=== PATIENT | female | born 1965 | race Caucasian/White ===

== ENCOUNTER 2020-05-20 11:09 | Emergency (ER) | payer OTHER, SELFPAY ==
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
[2020-05-20 11:23] VITALS: BP 153/73; PULSE 76; RESP 20; TEMP 36.9; O2SAT 100
[2020-05-20 12:17] VITALS: BP 119/63
== END 2020-05-20 12:17 | disposition home or self-care (01) ==
PROVIDERS: Emergency Provider Emergency Medicine; PCP Internal Medicine
DX: T14.8XXA Other injury of unspecified body region, initial encounter (principal); S63.92XA Sprain of unspecified part of left wrist and hand, initial encounter; V89.2XXA Person injured in unspecified motor-vehicle accident, traffic, initial encounter
CPT/HCPCS: 73000; 73130; 99282; 99284

== ENCOUNTER 2022-10-11 07:28 | Outpatient (CLI) | payer OTHER, SELFPAY ==
[2022-10-11 07:40] LABS: Appearance Urine Clear (Clear); Bilirubin Urine Negative (Negative); Glucose Urine UA Negative (Negative); Hematocrit 39.7 % (35.0-49.0); Hemoglobin 12.9 g/dL (12.0-15.0); Ketones Urine Negative (Negative); Leukocyte Esterase Ur Negative LEU/UL (Negative); Mean Corpuscular HGB Conc 32.5 g/dL (32.0-36.0); Mean Corpuscular Hemoglobin 30.5 pg (27.0-31.0); Mean Corpuscular Volume 93.9 fL (78.0-102.0); Mean Platelet Volume 10.6 fl (9.2-11.8); Nitrate Urine Negative (Negative); Platelet Count Result 201 K/mm3 (150-420); Protein Urine Negative (Negative); Red Blood Count 4.23 M/mm3 (4.20-5.40); Red Cell Distribution Width 13.3 % (11.6-14.4); Urobilinogen Urine 0.2 mg/dL (0.2-1.0); White Blood Count 3.8 K/mm3 (4.8-10.8)
[2022-10-11 07:55] LABS: Add Urine Microscopic? YES; Bacteria Urine None seen /hpf; Blood Urine Trace-Intact (Negative); Color Urine Light Yellow (Yellow); RBC Urine None seen /hpf (0-2); Squamous Epithelial Cell Urine Occasional /hpf (Few); WBC Urine None seen /hpf (0-3)
[2022-10-11 08:18] LABS: Band Neutrophils Percent 2 % (0-6); Lymphocytes Absolute Manual 1.21 K/mm3 (1.1-4.5); Lymphocytes Percent Manual 32 % (18-44); Monocytes Absolute Manual 0.19 K/mm3 (0.1-0.90); Monocytes Percent Manual 5 % (3-9); Neutrophils Absolute Manual 2.39 K/mm3 (1.7-7.2); Neutrophils Percent Manual 61 % (46-73); Total Cells Counted 100
[2022-10-11 08:19] LABS: Platelet Estimate Adequate (Adequate)
[2022-10-11 09:10] LABS: Alanine Aminotransferase 18 U/L (14-59); Albumin Level 3.6 g/dL (3.4-5.0); Alkaline Phosphatase 54 U/L (46-116); Anion Gap 9 mmol/L (8-16); Aspartate Amino Transferase 18 U/L (15-37); Bilirubin,Total 0.4 mg/dL (0.00-1.00); Blood Urea Nitrogen 8 mg/dL (7-18); Calcium 8.8 mg/dL (8.5-10.1); Carbon Dioxide 30 mmol/L (21-32); Chloride 106 mmol/L (98-108); Cholesterol 251 mg/dL (0-200); Estimated Glomerular Filt Rate > 60; Free T4 Free Thyroxine 0.93 ng/dL (0.76-1.46); Glucose 84 mg/dL (70-99); HDL Direct 79 mg/dL (40-60); LDL Cholesterol Calculated 153 mg/dL (<130); Osmolality Calculated 297 mOsm/kg (285-295); Potassium 4.2 mmol/L (3.5-5.1); Sodium 145 mmol/L (136-145); Thyroid Stimulating Hormone 0.81 uIU/mL (0.36-3.74); Triglycerides 95 mg/dL (0-150)
[2022-10-14 21:35] LABS: Vitamin D 25 Hydroxy 42 ng/mL (30-100)
== END 2022-10-11 07:29 | disposition home or self-care (01) ==
LOC: CHSLAB 07:29
PROVIDERS: PCP Internal Medicine; Visit Provider Nurse Practitioner Family
DX: Z00.00 Encounter for general adult medical examination without abnormal findings (principal); N95.0 Postmenopausal bleeding; E78.5 Hyperlipidemia, unspecified; R53.83 Other fatigue; E55.9 Vitamin D deficiency, unspecified
CPT/HCPCS: 36415; 80053; 80061; 81001; 82306; 84439; 84443; 85025

== ENCOUNTER 2023-02-14 15:34 | Outpatient (CLI) | payer OTHER, SELFPAY ==
--- NOTE | ~2023-02-14 | XR_ITS ---
XR elbow LT min 3V DATE: 02/14/2023 15:51 INDICATION: Medial left elbow pain. No known injury. TECHNIQUE: 4 views COMPARISON: None FINDINGS: No fracture or dislocation or joint effusion. No periosteal reaction or bone destruction. IMPRESSION: Negative Reviewed, dictated and finalized at location B. IMPRESSION: Negative
== END 2023-02-14 15:35 | disposition home or self-care (01) ==
LOC: CHSIMG 15:36
PROVIDERS: PCP Internal Medicine; Visit Provider Nurse Practitioner Family
DX: M25.552 Pain in left hip (principal)
CPT/HCPCS: 73080

== ENCOUNTER 2024-08-19 02:17 | Day surgery (SDC) | payer OTHER, SELFPAY ==
[2024-08-08 12:10] VITALS: BMI 25.0
--- NOTE | 2024-08-08 12:19 | PC.NURSE ---
Report to the Outpatient Waiting Room, entrance under the green pavilion located off [facility], at time _1130_ on date _[id number]_. Planned Procedure Time: _130pm_.? Time changes happen often and if your time is changed the preop area will call you the afternoon before. - You and your visitor will be asked to self-screen and do not enter if you have any COVID symptoms. Please call surgeon if you need to reschedule. - A mask is optional within the hospital at this time. Patients may have clear liquids (water, carbonated beverages, clear teas, apple juice) until 3 hours prior to surgery with a maximum of 20 ounces. - No food from midnight until time of surgery and no smoking Take only the following medications with a SIP of water on the morning of surgery: ____None DO NOT STOP ANY OF YOUR OTHER PRESCRIPTION MEDICATIONS PRIOR TO SURGERY EXCEPT THE FOLLOWING Medications to discontinue per physician Stop Meloxicam 08-12-2024 and stop vitamin and Turmeric [phone] Please no make-up, nail israeli, hairspray, perfume, deodorant, or body powder the day of surgery.? No jewelry (including any body piercings) or valuables the day of surgery, leave them at home.? Please take a shower or bath the night before, or the morning of, surgery with an antibacterial soap.? Wear comfortable, loose fitting clothing.? - Jewelry must be removed prior to entering the operating room.? Rings and piercings that are not removed may be cut off. - The hospital will not accept responsibility for valuables.? - Please leave all valuables, including medications, at home the day of surgery. If you are going home after surgery, a licensed new car driver must drive you home.? - NO public transportation without another adult if you receive anesthesia. - We recommend that an adult stay with you for 24 hours following discharge. - We also recommend that you do not drive, make important decision, drink alcoholic beverages, or take any drugs that were not prescribed by your health care provider for at least 24 hours after your discharge time. Follow any additional instructions given to you from your surgeon. Telephone instructions given to __Dennise__and asked if any additional questions and then verbalized understanding. Patient advised to call surgeon office or pre surgery nurse liaison [phone] if any additional questions.
--- NOTE | 2024-08-18 13:18 | WPDANESEPPF ---
Anes - Initial Pre Proc Eval Procedure: Operation Date: 08/19/24 13:30 Proposed Procedures p Left Elbow Lateral Epicondyle Debridement - iDnh Ying MD Date/Time: 08/18/24 13:18 Surgeon: Dinh Ying MD Pre Op Diagnosis: left elbow epicondylitis Patient Data Age: 59 Gender: F Height: 1.65 m Weight: 68.2 kg Allergies Allergy/AdvReac Type Severity Reaction Status Date / Time amoxicillin Allergy Hives Verified 08/19/24 12:08 adhesive tape AdvReac Rash & Verified 08/08/24 12:09 itching Home Medications Medication Instructions Recorded Confirmed Type multivit,mineral-folic acid 800 1 tablet PO DAILY 01/19/21 08/19/24 History mcg-vit K 100 mcg-herbal no.289 tablet (Alive Once Daily Women 50 Plus) meloxicam 15 mg tablet 15 mg PO DAILY #60 tabs 06/04/24 08/19/24 Rx turmeric 400 mg capsule 400 mg PO DAILY 07/30/24 08/19/24 History Patient hx anesthesia problems: none Family hx anesthesia problems: none Results Review: All pre-operative results and documents have been reviewed as part of the pre-operative evaluation. [facility] Past Medical History Medical History Acute pharyngitis Cellulitis of face Dextroscoliosis of lumbar spine Lipoma of arm left Migraine headache Multiple symmetrical lipomatosis Otalgia, right ear Surgical History Surgical History (Updated 08/18/24 @ 13:19 by Peter Lobo DO) Bone tumor Excision History of neck surgery History of tonsillectomy Hx of fusion of cervical spine Neuroma excision on left foot x3 2017, 2018, & 2019 S/P excision of lipoma x2 S/P hemorrhoidectomy s/p I&D thrombosed internal hemorrhoids on Family History Family History Grandparent Parkinson disease Father Lung cancer Social History Social History Smoking status: Never smoker Alcohol intake: current Drinks per week: 2 Alcohol use details: Socially Substance use: never Do You Feel Safe in your Home?: Yes Lack of Transportation: No Lack of Food: Never True Current Housing: I Have Housing Concerned About Future Housing: No Difficulty Paying Gas/Electric Bills: No Difficulty Paying for Meds: No Currently Unemployed: No Education: High School Diploma/GED Difficulty w/ Childcare or Family Care: No Living arrangements: with family Occupation/Education: occupation 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 Informed Consent: The patient's anesthetic plan and its attendant risks and benefits were discussed with the patient/family/POA. Questions were solicited and answers provided to the satisfaction of the patient/family/POA.
[2024-08-19] VITALS (7 sets, daily range): BP systolic 116–151; BP diastolic 62–72; PULSE 62–98; RESP 12–17; TEMP 36.5–36.8; O2SAT 99–100
--- NOTE | 2024-08-19 07:13 | WPDHPUPDATE1 ---
History and Physical Update Update Date/Time: 08/19/24 07:13 History and Physical has been reviewed, including an updated exam of the patient. There are NO changes in the patient's condition. Risks, benefits, and alternatives have been discussed and questions answered. Patient agrees to proceed with procedure.
[2024-08-19] MEDS: LACTATED RINGERS 1,000 ML 30 ML IV CONT ×2 (12:00→14:00)
[2024-08-19] MEDS: ACETAMINOPHEN 500 MG TABLET 1000 MG PO (12:07)
[2024-08-19] MEDS: KETOROLAC 15 MG/ML VIAL (*BKC) IV PUSH (12:07)
--- NOTE | 2024-08-19 14:16 | W.PM.PROC2 ---
Procedure Note - Detailed Date of Procedure 08/19/24 Pre-op Diagnosis Left elbow lateral epicondylitis. Post-op Diagnosis Same Procedure Performed Left elbow common extensor tendon debridement. Surgeon Dinh Ying MD Specialty Molder Jayda Wilkes PA-C Anesthesia General Indications Severe recalcitrant lateral elbow pain despite conservative treatment. Description of Procedure The patient was brought to the operating room. Preoperative antibiotics were given. A general anesthetic was administered. The arm was prepped and draped in the usual sterile fashion with a well-padded tourniquet on the arm. The limb was exsanguinated and the tourniquet inflated to 250 mililiters of mercury. A longitudinal incision was created over the pathological site at the lateral epicondyle. Dissection was brought down to the interval between the common extensor tendons and the extensor carpi radialis longus. The muscle was elevated, exposing the extensor carpi radialis brevis. Degenerative pathologic tendon was identified and excised sharply. The lateral epicondyle was abraded with a rongeur. The scratch test was to confirm complete excision of pathologic tissue. The wound was carefully irrigated. The tourniquet was released. The extensor tendon origin was repaired with [id number] sutures #1 Vicryl . The skin was closed with interrupted 3-0 Monocryl suture followed by running 4-0 Monocryl suture and Steri-Strips. Sterile dressing was applied with the wrist splint. The patient was extubated and brought to the recovery room in stable condition. Estimated Blood Loss 1 Drains No Packing No Pathology None sent Complications No immediate complications Condition Stable Disposition PACU [facility] Billing Surgery - Charge Forward: Surgery Billing
[2024-08-19] MEDS: ceFAZolin 2 GM/D5W 50 ML 2 GM/50 ML BAG IVPB (14:29)
[2024-08-19] MEDS: BUPIVACAINE/EPINEPHRINE 0.5% 50 ML VIAL 15 ML INFILTRATE (15:00)
--- NOTE | 2024-08-19 15:35 | SUR.PHASEI ---
Simple mask removed [id number]
== END 2024-08-19 16:52 | disposition home or self-care (01) ==
PROVIDERS: PCP Internal Medicine; Visit Provider Orthopaedic Surgery
PROC: (CPT 24110; principal; 2024-08-19 13:30)
DX: M77.12 Lateral epicondylitis, left elbow (principal); M41.86 Other forms of scoliosis, lumbar region; Z98.890 Other specified postprocedural states; Z98.1 Arthrodesis status; Z86.018 Personal history of other benign neoplasm; Z80.1 Family history of malignant neoplasm of trachea, bronchus and lung
CPT/HCPCS: 24358; A4565; A9270; J0690; J1100; J1596; J1885; J2003; J2250; J2405; J2704; J3010; J7120

== ENCOUNTER 2025-05-19 07:07 | Outpatient (CLI) | payer OTHER, SELFPAY ==
--- OUTSIDE RECORDS SUMMARY | 2025-05-19 07:11 | XMS_ITS | Data Portability ---
Author Organization [facility] AYANTera Maradiaga Address [address] [place] [address] Care Team Providers Care Customer Service Technician Name Role Phone VY OLMEDO Motor Vehicle Representative Assessment Encounter Date Assessment Date Assessment LastModified by Organization Details LastModified Time 03/09/2015 03/09/2015 Some dryness/dyspa reunia. Discussed lubrication, foreplay, and hormones... 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 good spirits - had to have a nuroma on foot removed recent mammograms discussed - has f/u in 6 mos Not available 11/18/2018 16:36:47 Plan of Treatment Reminders Order Date Submit Date Provider Last Modified By Organization Details Last Modified Time Details Appointments None recorded. Lab unlisted lab - igp, rfx aptima HPV ascu 2017 018 ELIDA [facility], [address], [address], [place], [address], 9 16:13:27 fecal occult blood, stool 2017 018 ELIDA In-Office Order, Internal Use Only DO Not Attach Compendium DO Not Attach Compendium, Do Not Delete/merge, [id number] 8 16:35:15 fecal occult blood, stool 2016 017 ELIDA In-Office Order, Internal Use Only DO Not Attach Compendium DO Not Attach Compendium, Do Not Delete/merge, [id number] 7 14:40:30 pap, LB + reflex to HR HPV if ASC-U 2014 015 ELIDA [facility], [address], [address], [place], [address], 5 15:17:52 Referral None recorded. Procedures None recorded. Surgeries None recorded. Imaging MAMMO, screening, digital, bilateral 2016 017 [email or web address] Not available 7 15:00:11 MAMMO, screening, digital, bilateral - May do additional views and/or ultrasound if indicated 2014 015 [email or web address] Not available 5 10:02:10 Medication Orders None recorded. Patient TargetsNo targets recorded. Patient Instructions Encounter Date Encounter Id Patient Instructions Last Modified By Organization Details Last Modified Time 03/09/2015 [id number] learning about breast cancer screening Not available 03/09/2015 12:21:32 08/07/2017 [id number] learning about breast cancer screening [email or web address] Not available 08/07/2017 14:40:13 Reason for Referral None Reported. Results Created Date Observation Date Name Description Value Unit Range Abnormal Flag Note LastModifiedBy Organization Detail LastModifiedTime 08/07/20 17 08/07/2017 fecal occul t blood , stool Occult Blood negati ve Not Available In-Office Order Internal Use Only DO Not Attach Compendium DO Not Attach Compendium, Do Not Delete/merge, [id number] 08/07/2017 14:04:54 03/09/20 15 03/15/2015 pap, LB + refle x to HR HPV if ASC-U diagnosis: COMMEN T NEGAT EDELMIRA FOR INTRA EPITH ELIAL DELLA N AND REX FRASER . CELLU LAR TURNER ES ASSOC IATED WITH ATROP HY ARE PRESE NT. THIS SPECI MEN WAS RESCR EENED PART OF OUR QUALI TY CONTR OL PROGR AM. Not Available [facility] ([facility]) [address], [place], [address], 03/15/2015 15:17:52 03/09/20 15 03/15/2015 pap, LB + refle x to HR HPV if ASC-U specimen adequacy: GAYE Sy SATIS FACTO RY FOR EVALU ATION . ENDOC ERVIC AL COMPO NENT MAY NOT BE DISTI NGUIS HED IN CASES OF ATROP HY. Not Available [facility] ([facility]) [address] [place], [address], 03/15/2015 15:17:52 03/09/20 15 03/15/2015 pap, LB + refle x to HR HPV if ASC-U clinician provided ICD9: GAYE Sy V72.3 1 ; CAIT CANELA GYNEC OLOGI RADHA EXAMI NATIO N Not Available [facility] ([facility]) [address] [place], [address], 03/15/2015 15:17:52 03/09/20 15 03/15/2015 pap, LB + refle x to HR HPV if ASC-U performed by: GAYE DESAI, CYTOT ECHNO LOGIS T (ASCP ) Not Available [facility] ([facility]) [address] [place], [address], 03/15/2015 15:17:52 03/09/20 15 03/15/2015 pap, LB + refle x to HR HPV if ASC-U QC reviewed by: GAYE ALBARRAN R, SUPER VISOR Y CYTOT ECHNO LOGIS T (ASCP ) Not Available [facility] ([facility]) [address] [place], [address], 03/15/2015 15:17:52 03/09/20 15 03/15/2015 pap, LB + refle x to HR HPV if ASC-U . . Not Available [facility] ([facility]) [address] [place], [address], 03/15/2015 15:17:52 03/09/20 15 03/15/2015 pap, LB + refle x to HR HPV if ASC-U note: COMMEN T THE PAP SMEAR IS A SCREE VANE TEST DESIG PABLO TO AID IN THE DETEC TION OF LALO LIGNA NT AND MALIG NANT CONDI TIONS OF THE UTERI NE CERVI X. IT IS NOT A DIAGN OSTIC PROCE DURE AND SHOUL D NOT BE USED THE SOLE MEANS OF DETEC TING CERVI RADHA CANCE R. BOTH FALSE -POSI TIVE AND FALSE -NEGA TIVE REPOR TS DO OCCUR . . Not Available [facility] ([facility]) [address] [place], [address], 03/15/2015 15:17:52 03/09/20 15 03/15/2015 pap, LB + refle x to HR HPV if ASC-U test methodology: COMMEN T THIS LIQUI D BASED THINP REP(R ) PAP TEST WAS SCREE PABLO WITH THE USE OF AN IMAGE GUIDE D SYSTE M. Not Available [facility] ([facility]) [address] [place], [address], 03/15/2015 15:17:52 03/09/20 15 03/15/2015 pap, LB + refle x to HR HPV if ASC-U . COMMEN T THE HPV DNA REFLE X CRITE JERONIMO WERE NOT MET WITH THIS SPECI MEN RESUL T THERE FORE, NO HPV TESTI NG WAS PERFO RMED. . Not Available [facility] ([facility]) [address] [place], [address], 03/15/2015 15:17:52 11/18/20 18 11/20/2018 pap, IG + refle x HR HPV diagnosis: Commen t NEGAT EDELMIRA FOR INTRA EPITH ELIAL LESIO N AND REX FRASER . Not Available [facility] ([facility]) [address] [place], [address], 11/20/2018 16:13:27 11/18/20 18 11/20/2018 pap, IG + refle x HR HPV specimen adequacy: Commen t Satis facto ry for evalu ation . Endoc ervic al and/o r squam ous metap lasti c cells (endo cervi radha compo nent) are prese nt. Not Available [facility] ([facility]) [address] [place], [address], 11/20/2018 16:13:27 11/18/20 18 11/20/2018 pap, IG + refle x HR HPV clinician provided ICD10: Gaye sy Z01.4 19 Not Available [facility] ([facility]) [address] [place], [address], 11/20/2018 16:13:27 11/18/20 18 11/20/2018 pap, IG + refle x HR HPV performed by: Rebecca Wiley (ASCP ) Not Available [facility] ([facility]) [address] [place], [address], 11/20/2018 16:13:27 11/18/20 18 11/20/2018 pap, IG + refle x HR HPV . . Not Available [facility] ([facility]) [address] [place], [address], 11/20/2018 16:13:27 11/18/20 18 11/20/2018 pap, IG + refle x HR HPV note: Gaye sy The Pap smear is a scree vane test descher pablo to aid in the detec tion of lalo ligna nt and malig nant condi tions of the uteri ne cervi x. It is not a diagn ostic proce dure and shoul d not be used as the sole means of detec ting cervi radha cance r. Both false -posi tive and false -nega tive repor ts do occur . Not Available [facility] ([facility]) [address] [place], [address], 11/20/2018 16:13:27 11/18/20 18 11/20/2018 pap, IG + refle x HR HPV test methodology: Commen t This liqui d based ThinP rep(R ) pap test was winston shah with the use of an image guide michelle campo. Not Available [facility] ([facility]) [address] [facility] [address], [place], [address], 11/20/2018 16:13:27 11/18/20 18 11/20/2018 pap, IG + refle x HR HPV . Commen t The HPV DNA refle x crite jeronimo were not met with this speci men resul t there fore, no HPV testi ng was perfo rmed. Not Available [facility] ([facility]) [address] [facility] [address], [place], [address], 11/20/2018 16:13:27 11/18/20 18 11/18/2018 fecal occul t blood , stool Occult Blood negati ve Not Available In-Office Order Internal Use Only DO Not Attach Compendium DO Not Attach Compendium, Do Not Delete/merge, [id number] 11/18/2018 16:06:55 09/09/20 15 09/08/2015 imagi ng/di agnos tic resul t No observ ation record ed. [email or web address] [facility] ([facility]) Scheduling [address] [place], [address], 09/09/2015 11:33:56 10/21/20 18 10/19/2018 MAMMO , scree vane, digit al, bilat eral No observ ation record ed. [email or web address] Not Available 2017 14:31:21 10/29/20 18 10/29/2018 MAMMO , diagn ostic , unila teral No observ ation record ed. [email or web address] [facility] [address] [place], [address], 10/29/2018 17:21:26 05/23/20 19 05/23/2019 MAMMO , diagn ostic , unila teral No observ ation record ed. [email or web address] [facility] [address] [place], [address], 05/23/2019 16:41:35 12/05/1905/23/2019 MAMMO , diagn ostic , unila teral No observ [facility]ion [facility] [address] [place], [address], 12/09/2019 11:27:26 12/25/19 20 12/25/2019 MAMMO , diagn ostic , digit al, bilat eral No observ ation record ed. [email or web address] [facility] [address] [facility] [place], [address], 12/26/2019 11:58:05 12/28/19 21 12/28/2020 US, breas t, bilat eral No observ ation record ed. [facility] [address] [facility] [place], [address], 12/28/2020 13:15:48 Result Notes None recorded. Problems Name Problem SNOMED Code Status Onset Date Resolution Date Notes Provider Name and Address Organization Details Recorded Time Menopause present 387607659 Active Vy Olmedo MD Attn: True mims,[address] [facility], [place], [address], [facility] 5 12:21:31 Problem Notes None recorded. Procedures Surgical History Date Name Laterality Status Provider Name and Address Organization Details Recorded Time 1 Most Recent Mammogram completed Lacey Santos RN [facility] 12/28/2020 12:34:48 8 Date of Last Pap Smear completed Paige Valdez MA [facility] 11/21/2018 08:01:24 9 Colposcopy completed Paige Valdez MA [facility] 03/09/2015 11:59:25 Imaging Results None recorded. Procedure Notes None recorded. Medical Equipment None Reported. Allergies No known drug allergies Medications Name Sig Start Date Stop Date Status Note LastModified by Organization Details LastModified Time amoxicillin 500 mg capsule active Not Available Not Availab le Not Available azithromycin 250 mg tablet active Not Available Not Availabl e Not Available hydrocodone 5 mg-acetaminoph en 325 mg tablet active Not Available Not Available Not Available cephalexin 500 mg capsule active Not Available Not Available N ot Available oseltamivir 75 mg capsule active Not Available Not Available N ot Available amoxicillin 875 mg-potassium clavulanate 125 mg tablet active Not Available Not Availabl e Not Available Vitals Date Recorded Body weight Body height Body mass index (BMI) Systolic blood pressure Diastolic blood pressure Provider Name and Address Organization Details Last Updated DateTime 03/09/2015 64766.19 284 g 160.02 cm 23.4 kg/m2 112 mm[Hg] 74 mm[Hg] Paige herrera MA [facility] 5 12:04:33 Date Recorded Body height Body mass index (BMI) Body weight Systolic blood pressure Diastolic blood pressure Provider Name and Address Organization Details Last Updated DateTime 08/07/2017 160.02 cm 24.5 kg/m2 19881.82 g 124 mm[Hg] 76 mm[Hg] Paige herrera MA [facility] 7 14:09:55 Date Recorded Body height Body mass index (BMI) Body weight Systolic blood pressure Diastolic blood pressure Provider Name and Address Organization Details Last Updated DateTime 11/18/2018 160.02 cm 25.6 kg/m2 00497.18 g 112 mm[Hg] 82 mm[Hg] Paige herrera MA [facility] 8 16:14:59 Social History Question Answer Notes LastModified by Organizat ion Details LastModified Time Tobacco Smoking Status Never Smoker Piage Valdez MA null, [facility] 03/09/2015 11:59:25 How Many Children Do You Have? 1 Information not available 03/09/2015 What Is Your Relationship Status? Information not available 03/09/2015 Sex: Unknown Functional Status None recorded. Mental Status None recorded. Family History Nothing Reported. Medical History Condition Response Heart Problems/Murmur Y Gynecological History Statement/Question Response Menses Monthly N Abnormal Pap Yes Date of Last Pap Smear 11/18/2018 Current Control Method Menopause Most Recent Mammogram 12/28/2020 LMP Definite Obstetrics History GPAL:G 1 P 1 0 0 1 Type Value Full Term 1 Living 1 Total 1 Past Encounters Encounter ID Performer Location Encounter Start Date Encounter Closed Date Diagnosis/Indication Diagnosis SNOMED-CT Code Diagnosis ICD10 Code Diagnosis Note [id number] MD Shelly Finney ([facility] 205) 2 [facility] [address] [place] [address] 03/09/2015 11:39:35 03/09/2015 16:33:13 Gynecologic examination 22240596 Menopause present 122832375 Screening for malignant neoplasm of breast [id number] MD Shelly Finney ([facility] 205) 2 [facility] [address] [place] [address] 08/07/2017 13:51:46 08/08/2017 15:00:11 Screening for malignant neoplasm of colon 009641031 Z12.11 Screening for malignant neoplasm of breast 629615901 Z12.31 Gynecologi c examination 92138076 Z01.419 Menopause present 711788 006 N95.1 [id number] MD Shelly Finney 14 OB 4 [facility] [address] [place] [address] 11/18/2018 15:51:56 11/18/2018 16:54:18 Screening for malignant neoplasm of colon 372726075 Z12.11 Gynecologi c examination 24517059 Z01.419 Health Concerns Section Related Observation LastModified by Organization Detai ls LastModified Time None Recorded Concern Status LastModified by Organization Details LastModified Time None Recorded Advance Directives Directive None Recorded Payers Insurance Date Sequence Insurance Name Policy Number Policy [place] Covered Member ID [place] Member ID Guarantor Name 04/17/2017 1 [facility] [id number] Dennise Franks [id number] Dennisedalton Franks 11/18/2018 1 [facility] [id number] Dennise Franks [id number] Dennise Franks Notes Date Note Type Note Provider Name and Address Organization Details Recorded Time 08/07/2017 text/html 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 Post-MenopausalRep orted bypatient.Menopaus al Symptoms:no menopausal symptoms; normal vaginal lubrication Vaginal Bleeding:history of menopause having occurred; no history of post menopausal bleeding Urinary Symptoms:no hematuria; no incontinence; no nocturia; no urinary frequency Vulva:no genital lesion; no vulvar atrophy Vagina:normal vaginal discharge; no vaginal atrophy Breast:no breast lump; no nipple discharge; no breast pain Sexual Complaints:no sexual complaints Psychological Symptoms:no depression; no anxiety Vy Olmedo MD Attn: Accounting[address] [place], [address], [facility] 08/07/2017 14:40:48 11/18/2018 text/html 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 Post-MenopausalRep orted bypatient.Menopaus al Symptoms:no menopausal symptoms; normal vaginal lubrication Vaginal Bleeding:history of menopause having occurred; no history of post menopausal bleeding Urinary Symptoms:no hematuria; no incontinence; no nocturia; no urinary frequency Vulva:no genital lesion; no vulvar atrophy Vagina:normal vaginal discharge; no vaginal atrophy Breast:no breast lump; no nipple discharge; no breast pain Sexual Complaints:no sexual complaints Psychological Symptoms:no depression; no anxiety Vy Olmedo MD Attn: Accounting[address] [place], [address], [facility] 11/18/2018 16:36:59 OBGyn Episode Ob Episode Information Episode Created Date Number of Fetuses Patient Bloodtype Patient rh Status Prepregnancy Weight lbs Domestic Partner Domestic Partner Phone Father Name Organic 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 Status 03/09/20 15 1 CLOSED Fetus Data First Name Last Name Admitted to NICU Weight (g) Sex Living Outcome Pediatric Complications Fetus ID Race Codes Race Delivery Type 3088.96 152 M Full Term Vaginal Adán Calculation Initial Adán Date Initial Exam Date Initial Exam Provider Initial Ultrasound Date Last Menstrual Period Date Ultra Sound Weeks Gestation 0 Eighteen To Twenty Week Adán Update Ultra Sound Date Fundal Height At Umbil Quickening Date Ultra Sound Latest Weeks Gestation Final Adán Confirmed By Final Adán Confirmed Date Final Adán Date Ultra Sound Latest Days Gestation 0 0 Menstrual History Last Menstrual Date Menses Monthly On Bcp Conception Prior Menses Frequency Hcg Plus Date Menarche Onset Age Delivery Information Delivery Date Delivery Type Labor Anesthesia Weeks Gestation Incision Type Labor Labor Length Hrs Delivered By Post Complications Tubal Sterilization Discharge Date Comments 3 [facility] Discharge Information Feeding Method Contraceptive Method Maternal HG B and HCT Levels
--- OUTSIDE RECORDS SUMMARY | 2025-05-19 07:11 | XMS_ITS | Clinical Summary ---
Author Organization [facility] Address [address] [place] [address] Phone Care Team Providers Care Extracting Machine Operator Name Role Phone Matthew Jenkins MD Primary Care Provider [phone] Allergies No known active allergies Medications HYDROcodone-helen taminophen (NORCO) 5-325 MG Tablet Take 1-2 Tabs by mouth every 4 hours as needed for Moderate or more severe pain. 25 Tab 10/09/2018 Active Active Problems No known active problems Resolved Problems Problem Noted Date Diagnosed Date Resolved Date Neuroma of second interspace of left foot 10/09/2018 10/09/2018 Family History Medical History Relation Name Comments No Known Problems Father No Known Problems Mother Relation Name Status Comments Father Alive Mother Alive Social History Tobacco Use Types Packs/Day Years Used Date Smoking Tobacco: Never Smokeless Tobacco: Never Alcohol Use Standard Drinks/Week Comments Yes 0 (1 standard drink = 0.6 oz pur e alcohol) RARELY Sexually Active Control Partners Comments Not Currently Comments No Sex and Gender Information Value Date Recorded Sex Assigned at Not on file Legal Sex Female 11:41 PM CDT Gender Identity Not on file Sexual Orientation Not on file Last Filed Vital Signs Vital Sign Reading Time Taken Comments Blood Pressure 124/70 10/09/2018 9:45 AM LUMP RECEIVER Pulse 58 10/09/2018 9:45 AM LUMP RECEIVER Temperature 36.2 C (97.2 F) 10/09/2018 9:45 AM LUMP RECEIVER Respiratory Rate 16 10/09/2018 9:45 AM LUMP RECEIVER Oxygen Saturation 98% 10/09/2018 9:45 AM LUMP RECEIVER Inhaled Oxygen Concentration - - Weight 63.5 kg (140 lb) 10/02/2018 1:00 PM LUMP RECEIVER Height 165.1 cm (5' 5) 10/02/2018 1:00 PM LUMP RECEIVER Body Mass Index 23.3 10/02/2018 1:00 PM LUMP RECEIVER Plan of Treatment Health Maintenance Due Date Last Done Comments Hepatitis C Virus (HCV) Screening 1963 Pap Smear 1984 Cervical Cancer Screening (CCS) 1993 HPV/Cotest 1993 Cologuard 2008 Colonoscopy 2008 Colorectal Cancer Screening 2008 Immunochemical Fecal Occult Blood 2008 Pneumococcal Immunization (50+ years) (1 of 1 - PCV) 2013 SARS-COV-2 Immunization (2 - season) 2024 06/27/2021 Influenza Immunization (Season Ended) 2025 11/16/2021, 08/19/2020, 08/12/2019, Additional history exists Mammogram 02/10/2026 02/10/2025, 12/21, 03/21/2022, Additional history exists Respiratory Syncytial Virus (RSV) Immunization (Adult) (1 - 1-dose 75+ series) 2038 DTaP/Tdap/Td Immunization Discontinued 08/20/2019, TdaP Immunization Completed 08/20/2019, 08/14/2017 Zoster Immunization Completed 12/01/2019, 9 Hepatitis B Immunization Aged Out No longer eligible based on patient's age to complete this topic Human Papillomavirus (HPV) Immunization Aged Out No longer eligible based on patient's age to complete this topic Meningococcal Immunization (ACWY) Aged Out No longer eligible based on patient's age to complete this topic Rotavirus Immunization Aged Out No lo nger eligible based on patient's age to complete this topic Procedures Procedure Name Priority Date/Time Associated Diagnosis Comments MARQUISE SCREENING BILATERAL DIGITAL W CAD W STEPEHN Routine 02/10/2025 7:29 AM CDT Encounter for screening mammogram for breast cancer from Last 3 Months or Most Recently Relevant to Health Maintenance Results * MARQUISE SCREENING BILATERAL DIGITAL W CAD W STEPHEN (02/10/2025 7:29 AM CDT) Anatomical Region Laterality Modality breast Bilateral Mammography 02/10/2025 7:23 AM CDT Narrative 02/11/2025 10:17 AM CDT - MARQUISE SCREENING BILATERAL DIGITAL W CAD W STEPHEN BILATERAL DIGITAL SCREENING MAMMOGRAM 3D/2D WITH CAD WITH MEDIOLATERAL OBLIQUE CRANIOCAUDAL: 02/10/2025 The study was acquired using digital technology and interpreted from soft copy. Current study was also evaluated with ICAD version 7.2. 2D digital mammographic views, as well as 3D digital tomosynthesis were performed in the CC and MLO projections. CLINICAL: Routine screening. Patient has no complaints. No personal history of cancer. No family history of breast cancer. COMPARISONS: Comparison is made to exams dated: 01/17/2024, 03/21/2022, and 12/28/2020 [facility]. BREAST TISSUE:There are scattered areas of fibroglandular density. FINDINGS: No significant masses, calcifications, or other findings are seen in either breast. There has been no significant interval change. IMPRESSION: NEGATIVE There is no mammographic evidence of malignancy. A 1 year screening mammogram is recommended. A letter will be sent to the patient with these results. The patient will be entered into a reminder system with a target due date of 1 year for her next screening exam. Electronically signed by: Jenaro paniagua/heber:02/10/2025 22:50:33 Heating And Cooling Technician(s): RT Wayne(R)(M), [facility] letter sent: Normal Exam Reading location: [facility] Mammogram BI-RADS: Category 1: Negative Procedure Note Jenaro Mcgrath MD - 02/11/2025 - MARQUISE SCREENING BILATERAL DIGITAL W CAD W STEPHEN BILATERAL DIGITAL SCREENING MAMMOGRAM 3D/2D WITH CAD WITH MEDIOLATERAL OBLIQUE CRANIOCAUDAL: 02/10/2025 The study was acquired using digital technology and interpreted from soft copy. Current study was also evaluated with ICAD version 7.2. 2D digital mammographic views, as well as 3D digital tomosynthesis were performed in the CC and MLO projections. CLINICAL: Routine screening. Patient has no complaints. No personal history of cancer. No family history of breast cancer. COMPARISONS: Comparison is made to exams dated: 01/17/2024, 03/21/2022, and 12/28/2020 [facility]. BREAST TISSUE:There are scattered areas of fibroglandular density. FINDINGS: No significant masses, calcifications, or other findings are seen in either breast. There has been no significant interval change. IMPRESSION: NEGATIVE There is no mammographic evidence of malignancy. A 1 year screening mammogram is recommended. A letter will be sent to the patient with these results. The patient will be entered into a reminder system with a target due date of 1 year for her next screening exam. Electronically signed by: Jenaro Mcgrath M.D. ll/heber:02/10/2025 22:50:33 Heating And Cooling Technician(s): RT Wayne(Tashia)(M), [facility] letter sent: Normal Exam Reading location: [facility] Mammogram BI-RADS: Category 1: Negative Matthew Jenkins MD IM MAMMO ORDERABLES Final Resu lt from Last 3 Months or Most Recently Relevant to [place] [address] Care Teams Extracting Machine Operator Relationship Specialty Start Date End Date Matthew Jenkins MD [address] [place] [address] PCP - General Internal Medicine 10/04/18
--- OUTSIDE RECORDS SUMMARY | 2025-05-19 07:11 | XMS_ITS | Clinical Summary ---
Author Organization [facility] Address [facility] [place] [address] Care Team Providers Care Manager Government Name Role Phone Unavailable Primary Care Provider Unavailabl e Social History Tobacco Use Types Packs/Day Years Used Date Smoking Tobacco: Never Assessed Comments Unknown Sex and Gender Information Value Date Recorded Sex Assigned at Not on file Legal Sex Female 11:17 PM CDT Gender Identity Not on file Sexual Orientation Not on file Plan of Treatment Health Maintenance Due Date Last Done Comments Cervical Cancer Screening Pa p Smear (Age 30 to 64) Every 3 Years 1963 Colorectal Cancer Screening Colonoscopy (10 Years) 1963 Annual Physical 1966 Hepatitis C 1981 DTaP, Tdap and Td Vaccines ( 1 - Tdap) 1982 Cervical Cancer Screening Pa p with HPV Testing (Age 30 to 64) Every 5 Years 1993 Cervical Cancer Screening with HPV 1993 Mammogram Screening 2003 Pneumococcal Vaccine: 50+ Ye ars (1 of 1 - PCV) 2013 Zoster Vaccines (1 of 2) 2013 COVID-19 Vaccine ( - 2023-2 5 season) 2024 RSV Immunization or 60+ Years (1 - 1-dose 75+ series) 2038 Meningococcal B Vaccine Aged Out No l onger eligible based on patient's age to complete this topic Meningococcal Vaccine Aged Out No myrna hailey eligible based on patient's age to complete this topic RSV Immunizations Under 20 Months Aged Out No longer eligible based on patient's age to complete this topic
--- OUTSIDE RECORDS SUMMARY | 2025-05-19 07:11 | XMS_ITS | Clinical Summary ---
Author Organization [facility] Address [address] [place] [address] Care Team Providers Care Commission Agent Livestock Name Role Phone Unavailable Primary Care Provider Unavailabl e Source Comments [facility],non-owned Affiliates and Associated Physician Practices is amultiple site organization consisting of ambulatory clinics and hospital sitesin [place], [place], [place] and [place]. This disclosure is being madepursuant to the Care Everywhere program and may not contain all information available regarding this patient. Last updated 18.[facility] Allergies No known active allergies Medications * Be aware that medications may not be up to date on this document. Alwaysverify current medications with the patient. 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 Gender Identity Not on file Sexual Orientation Not on file Last Filed Vital Signs Vital Sign Reading Time Taken Comments Blood Pressure 110/62 09/14/2019 11:13 AM CDT Pulse 80 09/14/2019 11:13 AM CDT Temperature 37 C (98.6 F) 09/14/2019 11:13 AM CDT Respiratory Rate 14 09/14/2019 11:13 AM CDT Oxygen Saturation 99% 09/14/2019 11:13 AM CDT Inhaled Oxygen Concentration - - Weight 56.7 kg (125 lb) 09/14/2019 11:13 AM CDT Height 165.1 cm (5' 5) 09/14/2019 11:13 AM CDT Body Mass Index 20.8 09/14/2019 11:13 AM CDT Plan of Treatment Health Maintenance Due Date Last Done Comments COLOGUARD (AGES 45-75) - COL ON CA SCREENING 1963 COLON MONITORING 1963 COLONOSCOPY - COLON CA SCREENING 1963 CT COLONOGRAPHY - COLON CA SCREENING 1963 Colorectal Cancer Screening 1963 FIT - COLON CA SCREENING 1963 FLEX SIG - COLON CA SCREENING 1963 LIPID TESTING 1963 HIV SCREENING 1978 HEPATITIS C SCREENING 05/19/1981 DTAP/TDAP/TD VACCINES (1 - Tdap) 1982 PNEUMOCOCCAL VACCINE 50+ (1 of 1 - PCV) 2013 ZOSTER VACCINE (1 of 2) 2013 MAMMOGRAM 10/19/2020 10/19/2018 COVID-19 VACCINE ( - 2023-2 5 season) 2024 DEPRESSION SCREENING 11/19/2024 INFLUENZA VACCINE (Season Ended) 2025 Respiratory Syncytial Virus (RSV) Vaccine Pt: or over 60 yrs (1 - 1-dose 75+ series) 2038 HEPATITIS B VACCINE Aged Out No longe r eligible based on patient's age to complete this topic HIB VACCINE Aged Out No longer eligi ble based on patient's age to complete this topic HPV VACCINE Aged Out No longer eligi ble based on patient's age to complete this topic MENINGOCOCCAL (Group B) VACC INE SHARED DECISION-MAKING Aged Out No longer eligibl e based on patient's age to complete this topic MENINGOCOCCAL GROUPS A/C/Y/W VACCINE Aged Out No longer eligible b ased on patient's age to complete this topic Insurance * Guarantor: FRANCA HENRY Account Type Relation to Patient Date of Phone Billing Address Personal/Family Other
[2025-05-19 07:28] LABS: Add Urine Microscopic? YES; Appearance Urine Clear (Clear); Glucose Urine UA Negative (Negative); Hematocrit 36.7 % (35.0-49.0); Hemoglobin 12.1 g/dL (12.0-15.0); Immature Granulocyte Percent A 0.5 % (0.0-0.0); Leukocyte Esterase Ur Trace (Negative); Lymphocytes Absolute Auto 1.67 K/mm3 (1.10-4.50); Mean Corpuscular HGB Conc 33.0 g/dL (32-36); Mean Corpuscular Hemoglobin 30.0 pg (27.0-31.0); Mean Corpuscular Volume 90.8 fL (78.0-102.0); Nitrate Urine Negative (Negative); Nucleated Red Blood Cells Absolute Auto 0.00 K/mm3 (0.00-0.00); Nucleated Red Blood Cells Perc 0.0 % (0-0.0); Platelet Count Result 325 K/mm3 (150-420); Red Blood Count 4.04 M/mm3 (4.20-5.40); Specific Grav Ur 1.010 (1.010-1.020); White Blood Count 7.7 K/mm3 (4.8-10.8)
[2025-05-19 08:12] LABS: Alanine Aminotransferase 13 U/L (6-35); Albumin Level 3.5 g/dL (3.5-5.1); Alkaline Phosphatase 58 U/L (38-126); Anion Gap 3 mmol/L (4-12); Aspartate Amino Transferase 22 U/L (14-36); Bilirubin,Total 0.5 mg/dL (0.2-1.3); Blood Urea Nitrogen 6 mg/dL (7-17); Calcium 9.1 mg/dL (8.4-10.2); Carbon Dioxide 32 mmol/L (22-30); Chloride 106 mmol/L (98-107); Cholesterol 199 mg/dL (0-200); Estimated Glomerular Filt Rate > 60; Glucose 82 mg/dL (65-110); HDL Direct 48 mg/dL; Osmolality Calculated 288 mOsm/kg (285-295); Potassium 4.3 mmol/L (3.4-5.0); Sodium 141 mmol/L (137-145); Total Protein 6.3 g/dL (6.3-8.2); Triglycerides 86 mg/dL (<150)
[2025-05-19 08:42] LABS: Thyroid Stimulating Hormone 0.538 uIU/mL (0.465-4.680)
== END 2025-05-19 07:08 | disposition home or self-care (01) ==
LOC: CHSLAB 07:09
PROVIDERS: PCP Internal Medicine; Visit Provider Internal Medicine
DX: Z00.00 Encounter for general adult medical examination without abnormal findings (principal); J02.9 Acute pharyngitis, unspecified
CPT/HCPCS: 36415; 80053; 80061; 81001; 84443; 85025

== ENCOUNTER 2025-11-09 07:48 | Outpatient (NON) | payer OTHER, SELFPAY ==
--- NOTE | 2025-11-09 | S_PTH ---
PATIENT: Dennise Franks LOC: [facility] #:[id number] AGE/SX: 60/F ROOM: RE11/09/[address]: Martín Andujar DO : 1965 BED: DIS: 11/09/2025 SPEC #: [id number] RECD: 11/10/25 08:10 STATUS: DERIAN RE #: [id number] OLY: 11/09/25 00:[address]: Martín Andujar DEPT: [facility] Surgical RECD BY: Azul Kim ENTERED: 11/10/25 08:11 SP TYPE: Surgical OTHR DR: Matthew Jenkins MD Tissues: A - Mass Procedures: Hematoxylin and Eosin Stain Gross and Microscopic Level 3
--- OUTSIDE RECORDS SUMMARY | 2025-11-10 07:51 | XMS_ITS | Clinical Summary ---
Author Organization [facility] Address [facility] [place] [address] Care Team Providers Care Bag Liner Name Role Phone Unavailable Primary Care Provider [...]
--- OUTSIDE RECORDS SUMMARY | 2025-11-10 07:51 | XMS_ITS | Clinical Summary ---
Author Organization [facility] [employer] Address [address] [place] [address] Care Team Providers Care Dispensing Audiologist Name Role Phone Unavailable Primary Care Provider Unavailabl e Source Comments [facility],non-owned Affiliates and Associated Physician Practices is amultiple site organization consisting of ambulatory clinics and hospital sitesin [place], [place], [place] and [place]. This disclosure is being madepursuant to the Care Everywhere program and may not contain all information available regarding this patient. 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
--- OUTSIDE RECORDS SUMMARY | 2025-11-10 07:51 | XMS_ITS | Clinical Summary ---
Author Organization [facility] Address [address] [place] [address] Phone Care Team Providers Care Art Specialist Name Role Phone Matthew Jenkins MD Primary Care Provider [phone] Allergies No known active allergies Medications HYDROcodone-helen [...] Comments Blood Pressure 124/70 10/09/2018 9:45 AM [employer] Pulse 58 10/09/2018 9:45 AM [employer] Temperature 36.2 C (97.2 F) 10/09/2018 9:45 AM [employer] Respiratory Rate 16 10/09/2018 9:45 AM [employer] Oxygen Saturation 98% 10/09/2018 9:45 AM [employer] Inhaled Oxygen Concentration - - Weight 63.5 kg (140 lb) 10/02/2018 1:00 PM [employer] Height 165.1 cm (5' 5) 10/02/2018 1:00 PM [employer] Body Mass Index 23.3 10/02/2018 1:00 PM [employer] Plan of Treatment Health Maintenance Due Date [...] to exams dated: 01/17/2024, 03/21/2022, and 12/28/2020 [facility]. BREAST TISSUE:There are scattered areas of fibroglandular [...] exam. Electronically signed by: Jenaro paniagua/heber:02/10/2025 22:50:33 Climatology Professor(s): RT Wayne(R)(M), [facility] letter sent: Normal Exam Reading location: [place] [...] to exams dated: 01/17/2024, 03/21/2022, and 12/28/2020 [facility]. BREAST TISSUE:There are scattered areas of fibroglandular [...] exam. Electronically signed by: Jenaro paniagua/heber:02/10/2025 22:50:33 Climatology Professor(s): RT Wayne(R)(M), [facility] letter sent: Normal Exam Reading location: [place] Mammogram BI-RADS: Category 1: Negative Matthew Jenkins MD IM MAMMO ORDERABLES Final Resu lt from Last 3 Months or Most Recently Relevant to Health Maintenance Insurance [facility] Care Teams Art Specialist Relationship Specialty Start Date End Date Matthew Jenkins MD [address] [place] [address] PCP - General Internal Medicine 10/04/18
== END 2025-11-09 07:49 | disposition home or self-care (01) ==
PROVIDERS: PCP Internal Medicine; Visit Provider Surgery
DX: R22.32 Localized swelling, mass and lump, left upper limb (principal)
CPT/HCPCS: 88304

== ENCOUNTER 2025-11-09 07:50 | Day surgery (SDC) | payer OTHER, SELFPAY ==
[2025-10-29 09:08] VITALS: BMI 21.2
[2025-11-09] VITALS (9 sets, daily range): BP systolic 134–148; BP diastolic 68–79; PULSE 73–83; RESP 15–16; TEMP 37.2; O2SAT 98–100
--- OUTSIDE RECORDS SUMMARY | 2025-11-09 09:44 | XMS_ITS | Clinical Summary ---
Author Organization [facility] Address [address] [place] [address] Phone Care Team Providers Care Embroiderer Name Role Phone Matthew Jenkins MD Primary Care Provider [phone] Allergies No known active allergies Medications HYDROcodone-helen [...] Comments Blood Pressure 124/70 10/09/2018 9:45 AM REVENUE LIAISON Pulse 58 10/09/2018 9:45 AM REVENUE LIAISON Temperature 36.2 C (97.2 F) 10/09/2018 9:45 AM REVENUE LIAISON Respiratory Rate 16 10/09/2018 9:45 AM REVENUE LIAISON Oxygen Saturation 98% 10/09/2018 9:45 AM REVENUE LIAISON Inhaled Oxygen Concentration - - Weight 63.5 kg (140 lb) 10/02/2018 1:00 PM REVENUE LIAISON Height 165.1 cm (5' 5) 10/02/2018 1:00 PM REVENUE LIAISON Body Mass Index 23.3 10/02/2018 1:00 PM REVENUE LIAISON Plan of Treatment Health Maintenance Due Date Last Done Comments Hepatitis C Virus (HCV) Screening 1963 Pap Smear 1984 Cervical Cancer Screening (CCS) 1993 HPV/Cotest 1993 Cologuard 2008 Colonoscopy 2008 Colorectal Cancer Screening 2008 Immunochemical Fecal Occult Blood 2008 Pneumococcal Immunization (50+ years) (1 of 1 - PCV) 2013 Influenza Immunization (#1) 07/20/20252 07/2021, 08/19/2020, 08/12/2019, Additional history exists SARS-COV-2 Immunization (2 - 2024- season) 2025 06/27/2021 Mammogram 02/10/2026 02/10/2025, 12/21, 03/21/2022, Additional history exists Respiratory Syncytial Virus (RSV) Immunization (Adult) (1 - 1-dose 75+ series) 2038 DTaP/Tdap/Td Immunization Discontinued 08/20/2019, TdaP Immunization Completed 08/20/2019, 08/14/2017 Zoster Immunization Completed 12/01/2019, 9 Hepatitis B Immunization Aged Out No longer eligible based on patient's age to complete this topic Human Papillomavirus (HPV) Immunization (No Doses Required) Completed Meningococcal Immunization (ACWY) Aged Out No longer eligible based on patient's age to complete this topic Rotavirus Immunization Aged Out No lo nger eligible based on patient's age to complete this topic Procedures Procedure Name Priority Date/Time Associated Diagnosis Comments MARQUISE SCREENING BILATERAL DIGITAL W CAD W STEPHEN Routine 02/10/2025 7:29 AM CDT Encounter for [...] to exams dated: 01/17/2024, 03/21/2022, and 12/28/2020 [facility]. BREAST TISSUE:There are scattered areas of [...] exam. Electronically signed by: Jenaro paniagua/heber:02/10/2025 22:50:33 Golf Course Manager(s): RT Wayne(R)(M), [facility] letter sent: Normal Exam Reading location: [...] to exams dated: 01/17/2024, 03/21/2022, and 12/28/2020 [facility]. BREAST TISSUE:There are scattered areas of [...] exam. Electronically signed by: Jenaro paniagua/heber:02/10/2025 22:50:33 Golf Course Manager(s): RT Wayne(R)(M), [facility] letter sent: Normal Exam Reading location: [place] Mammogram BI-RADS: Category 1: Negative Matthew Jenkins MD IM MAMMO ORDERABLES Final Resu lt from Last 3 Months or Most Recently Relevant to Health Maintenance Insurance [facility] Care Teams Embroiderer Relationship Specialty Start Date End Date Matthew Jenkins MD [address] [place] [address] PCP - General Internal Medicine 10/04/18
--- OUTSIDE RECORDS SUMMARY | 2025-11-09 09:45 | XMS_ITS | Clinical Summary ---
Author Organization [facility] Address [address] [place] [address] Care Team Providers Care Lithographic Photographer Name Role Phone Unavailable Primary Care Provider Unavailabl e Source Comments [facility],non-owned Affiliates and Associated Physician Practices is amultiple site organization consisting of ambulatory clinics and hospital sitesin [place], [place], [place] and [place]. This disclosure is being madepursuant to the Care Everywhere program and may not contain all information available regarding this patient. 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
--- OUTSIDE RECORDS SUMMARY | 2025-11-09 09:45 | XMS_ITS | Clinical Summary ---
Author Organization [facility] Address [facility] [place] [address] Care Team Providers Care Animal Care Worker Name Role Phone Unavailable Primary Care Provider [...] of 2) 2013 COVID-19 Vaccine ( - 2024-2 6 season) 2025 Influenza Adult (#1) 2025 RSV Immunization or 60+ Years (1 - 1-dose 75+ series) 2038 Hepatitis A Vaccines Aged Out No long er eligible based on patient's age to complete this topic Meningococcal B Vaccine Aged Out No l onger eligible based on patient's age to complete this topic Meningococcal Vaccine Aged Out No myrna hailey eligible based on patient's age to complete this topic RSV Immunizations Under 20 Months Aged Out No longer eligible based on patient's age to complete this topic
--- OUTSIDE RECORDS SUMMARY | 2025-11-09 09:45 | XMS_ITS | Data Portability ---
Author Organization [facility] AYANTera Maradiaga Address [address] [place] [address] Care Team Providers Care Head Of Sales Name Role Phone VY OLMEDO Buttonhole Machine Operator Assessment Encounter Date Assessment Date Assessment LastModified by Organization Details LastModified Time 03/09/2015 03/09/2015 Some dryness/dyspa reunia. Discussed lubrication, foreplay, and hormones... Obstetric Anaesthetist exam otherwise normal Not available 03/09/2015 12:21:32 08/07/2017 08/07/2017 lighthouse keeper exam normal, no new issues Not available 08/07/2017 14:40:08 11/18/2018 11/18/2018 lighthouse keeper exam normal, no new issues. good spirits [...] HPV ascu 2017 018 [facility], [address], [address], [place], [address], 9 16:13:27 fecal occult blood, stool 2017 018 ELIDA In-Office Order, Internal Use Only DO Not Attach Compendium DO Not Attach Compendium, Do Not Delete/merge, [id number] 16:35:15 fecal occult blood, stool 2016 017 [facility] In-Office Order, Internal Use Only DO Not Attach Compendium DO Not Attach Compendium, Do Not Delete/merge, [id number] 14:40:30 pap, LB + reflex to HR HPV if ASC-U 2014 015 [facility], [address], [address], [place], [address], 5 15:17:52 Referral None recorded. Procedures None [...] By Organization Details Last Modified Time 03/09/2015 [id number] learning about breast cancer screening Not available 03/09/2015 12:21:32 08/07/2017 [id number] learning about breast cancer screening [email or web address] Not available 08/07/2017 14:40:13 Reason for Referral None Reported. Results Created Date Observation Date Name Description Value Unit Range Abnormal Flag Note LastModifiedBy Organization Detail LastModifiedTime 08/07/20 17 08/07/2017 fecal occul t blood , stool Occult Blood negati ve Not Available In-Office Order Internal Use Only DO Not Attach Compendium DO Not Attach Compendium, Do Not Delete/merge, [id number] 08/07/2017 14:04:54 03/09/20 15 03/15/2015 pap, LB + refle x to HR HPV if ASC-U diagnosis: COMMEN T NEGAT EDELMIRA FOR INTRA EPITH ELIAL DELLA N AND REX FRASER . CELLU LAR TURNER ES ASSOC IATED WITH ATROP HY ARE PRESE NT. THIS SPECI MEN WAS RESCR EENED PART OF OUR QUALI TY CONTR OL PROGR AM. Not Available [facility] ([facility]) [address], [place], [address], 03/15/2015 15:17:52 03/09/20 15 03/15/2015 pap, LB + refle x to HR HPV if ASC-U specimen adequacy: GAYE Sy SATIS FACTO RY FOR EVALU ATION . ENDOC ERVIC AL COMPO NENT MAY NOT BE DISTI NGUIS HED IN CASES OF ATROP HY. Not Available [facility] ([facility]) [address] [place], [address], 03/15/2015 15:17:52 03/09/20 15 03/15/2015 pap, LB + refle x to HR HPV if ASC-U clinician provided ICD9: GAYE Sy V72.3 1 ; CAIT CANELA GYNEC OLOGI RADHA EXAMI NATIO N Not Available [facility] ([facility]) [address] [place], [address], 03/15/2015 15:17:52 03/09/20 15 03/15/2015 pap, LB + refle x to HR HPV if ASC-U performed by: GAYE DESAI, CYTOT ECHNO LOGIS T (ASCP ) Not Available [facility] ([facility]) [address] [place], [address], 03/15/2015 15:17:52 03/09/20 15 03/15/2015 pap, LB + refle x to HR HPV if ASC-U QC reviewed by: GAYE ALBARRAN R, SUPER VISOR Y CYTOT ECHNO LOGIS T (ASCP ) Not Available [facility] ([facility]) [address] [place], [address], 03/15/2015 15:17:52 03/09/20 15 03/15/2015 pap, LB + refle x to HR HPV if ASC-U . . Not Available [facility] ([facility]) [address] [place], [address], 03/15/2015 15:17:52 03/09/20 15 03/15/2015 pap, LB [...] DO OCCUR . . Not Available [facility] ([facility]) [address] [place], [address], 03/15/2015 15:17:52 03/09/20 15 03/15/2015 pap, LB + refle x to HR HPV if ASC-U test methodology: COMMEN T THIS LIQUI D BASED THINP REP(R ) PAP TEST WAS SCREE PABLO WITH THE USE OF AN IMAGE GUIDE D SYSTE M. Not Available [facility] ([facility]) [address] [place], [address], 03/15/2015 15:17:52 03/09/20 15 03/15/2015 pap, LB + refle x to HR HPV if ASC-U . COMMEN T THE HPV DNA REFLE X CRITE JERONIMO WERE NOT MET WITH THIS SPECI MEN RESUL T THERE FORE, NO HPV TESTI NG WAS PERFO RMED. . Not Available [facility] ([facility]) [address] [place], [address], 03/15/2015 15:17:52 11/18/20 18 11/20/2018 pap, IG + refle x HR HPV diagnosis: Commen t NEGAT EDELMIRA FOR INTRA EPITH ELIAL LESIO N AND REX FRASER . Not Available [facility] ([facility]) [address] [place], [address], 11/20/2018 16:13:27 11/18/20 18 11/20/2018 pap, IG + refle x HR HPV specimen adequacy: Commen t Satis facto ry for evalu ation . Endoc ervic al and/o r squam ous metap lasti c cells (endo cervi radha compo nent) are prese nt. Not Available [facility] ([facility]) [address] [place], [address], 11/20/2018 16:13:27 11/18/20 18 11/20/2018 pap, IG + refle x HR HPV clinician provided ICD10: Gaye sy Z01.4 19 Not Available [facility] ([facility]) [address] [place], [address], 11/20/2018 16:13:27 11/18/20 18 11/20/2018 pap, IG + refle x HR HPV performed by: Rebecca Wiley (ASCP ) Not Available [facility] ([facility]) [address] [place], [address], 11/20/2018 16:13:27 11/18/20 18 11/20/2018 pap, IG + refle x HR HPV . . Not Available [facility] ([facility]) [address] [place], [address], 11/20/2018 16:13:27 11/18/20 18 11/20/2018 pap, IG [...] ts do occur . Not Available [facility] ([facility]) [address] [place], [address], 11/20/2018 16:13:27 11/18/20 18 11/20/2018 pap, IG + refle x HR HPV test methodology: Commen t This liqui d based ThinP rep(R ) pap test was winston shah with the use of an image guide michelle campo. Not Available [facility] ([facility]) [address], [place], [address], 11/20/2018 16:13:27 11/18/20 18 11/20/2018 pap, IG + refle x HR HPV . Commen t The HPV DNA refle x crite jeronimo were not met with this speci men resul t there fore, no HPV testi ng was perfo rmed. Not Available [facility] ([facility]) [address], [place], [address], 11/20/2018 16:13:27 11/18/20 18 11/18/2018 fecal occul t blood , stool Occult Blood negati ve Not Available In-Office Order Internal Use Only DO Not Attach Compendium DO Not Attach Compendium, Do Not Delete/merge, [id number] 11/18/2018 16:06:55 09/09/20 15 09/08/2015 imagi ng/di agnos tic resul t No observ ation record ed. [email or web address] [facility] ([facility]) Scheduling [address] [place], [address], 09/09/2015 11:33:56 10/21/20 18 10/19/2018 MAMMO , scree vane, digit al, bilat eral No observ ation record ed. [email or web address] Not Available 2017 14:31:21 10/29/20 18 10/29/2018 MAMMO , diagn ostic , unila teral No observ ation record ed. [email or web address] [facility] [address] [place], [address], 10/29/2018 17:21:26 05/23/20 19 05/23/2019 MAMMO , diagn ostic , unila teral No observ ation record ed. [email or web address] [facility] [address] [place], [address], 05/23/2019 16:41:35 12/05/1905/23/2019 MAMMO , diagn ostic , unila teral No observ ation [facility] [address] [place], [address], 12/09/2019 11:27:26 12/25/19 20 12/25/2019 MAMMO , diagn ostic , digit al, bilat eral No observ ation record ed. [email or web address] [facility] [address] [place], [address], 12/26/2019 11:58:05 12/28/19 21 12/28/2020 US, breas t, bilat eral No observ ation record ed. [facility] [address] [place], [address], 12/28/2020 13:15:48 Result Notes None recorded. Problems Name Problem SNOMED Code Status Onset Date Resolution Date Notes Provider Name and Address Organization Details Recorded Time Menopause present [id number] Active Vy Olmedo MD Attn: True mims,[address], [place], [address], [facility] 5 12:21:31 Problem Notes None recorded. Procedures Surgical History Date Name Laterality Status Provider Name and Address Organization Details Recorded Time 1 Most Recent Mammogram completed Lacey Santos RN [facility] 12/28/2020 12:34:48 8 Date of Last Pap Smear completed Paige Valdez MA [facility] 11/21/2018 08:01:24 9 Colposcopy completed Paige Valdez MA [facility] 03/09/2015 11:59:25 Imaging Results None recorded. Procedure [...] Body height Body mass index (BMI) Systolic And Diastolic Provider Name and Address Organization Details Last Updated DateTime 03/09/2015 50741.192 84 g 160.02 cm 23.4 kg/m2 112/74 mm[Hg] Paige Valdez MA [facility] 03/09/2015 12:04:33 Date Recorded Body height Body mass index (BMI) Body weight Systolic And Diastolic Provider Name and Address Organization Details Last Updated DateTime 08/07/2017 160.02 cm 24.5 kg/m2 62188.82 g 124/76 mm[Hg] Paige Valdez MA [facility] 08/07/2017 14:09:55 Date Recorded Body height Body mass index (BMI) Body weight Systolic And Diastolic Provider Name and Address Organization Details Last Updated DateTime 11/18/2018 160.02 cm 25.6 kg/m2 65150.18 g 112/82 mm[Hg] Paige Valdez MA [facility] 11/18/2018 16:14:59 Social History Question Answer Notes LastModified by Organizat ion Details LastModified Time Tobacco Smoking Status Never Smoker Paige Valdez MA null, [facility] 03/09/2015 11:59:25 How Many Children Do You [...] Diagnosis SNOMED-CT Code Diagnosis ICD10 Code Diagnosis IMO Codes Diagnosis Note [id number] MD Shelly Finney ([place] [address]) [address] [employer] [place] [address] 03/09/2015 11:39:35 03/09/2015 16:33:13 Gynecologic examination 58369229 Menopause present [id number] Screening for malignant neoplasm of breast [id number] MD Shelly Finney ([place] [address]) [address] [facility] [employer] [place] [address] 08/07/2017 13:51:46 08/08/2017 15:00:11 Screening for malignant neoplasm of colon 066314464 Z12.11 Screening for malignant neoplasm of breast 587030374 Z12.31 Gynecologi c examination 64510424 Z01.419 Menopause present 915846 006 N95.1 [id number] MD Shelly Finney 14 OB [address] [facility] [address] [place], [place] [address], [place] [address] 11/18/2018 15:51:56 11/18/2018 16:54:18 Screening for malignant neoplasm of colon 181968262 Z12.11 Gynecologi c examination 65196963 Z01.419 Health Concerns Section Related Observation LastModified by Organization Detai ls LastModified Time None Recorded Concern Status LastModified by Organization Details LastModified Time None Recorded Advance Directives Directive None Recorded Payers Insurance Date Sequence Insurance Name Policy Number Policy [place] Covered Member ID [place] Member ID Guarantor Name 04/17/2017 1 [facility] [id number] Dennisedalton Franks [id number] Dennise Franks 11/18/2018 1 [facility] [id number] Dennise Franks [id number] Dennise Franks Notes Date Note Type Note Provider Name and Address Organization Details Recorded Time 5 text/html Annual Obstetric Anaesthetist Post-MenopausalReported by PatientGenitourinary symptomsFor menopausal symptoms, patient reportsno menopausal symptomsandnormal vaginal lubrication. For vaginal bleeding, patient reportshistory of menopause having occurredandno history of post menopausal bleeding. For urinary symptoms, patient reportsno hematuria,no incontinence,no nocturia, andno urinary frequency. For vulva, patient reportsno genital lesionandno vulvar atrophy. For vagina, patient reportsnormal vaginal dischargeandno vaginal atrophy.Breast symptomsFor breast, patient reportsno breast lump,no nipple discharge, andno breast pain.Psychological symptomsFor sexual complaints, patient reportsno sexual complaints. For psychological symptoms, patient reportsno depressionandno anxiety.ROS as noted in the [facility] Vy Olmedo MD Attn: Accounting,[address] [place], [address], [facility] 03/09/2015 12:21:38 7 text/html Annual Obstetric Anaesthetist Post-MenopausalReported by PatientGenitourinary symptomsFor menopausal symptoms, patient reportsno menopausal symptomsandnormal vaginal lubrication. For vaginal bleeding, patient reportshistory of menopause having occurredandno history of post menopausal bleeding. For urinary symptoms, patient reportsno hematuria,no incontinence,no nocturia, andno urinary frequency. For vulva, patient reportsno genital lesionandno vulvar atrophy. For vagina, patient reportsnormal vaginal dischargeandno vaginal atrophy.Breast symptomsFor breast, patient reportsno breast lump,no nipple discharge, andno breast pain.Psychological symptomsFor sexual complaints, patient reportsno sexual complaints. For psychological symptoms, patient reportsno depressionandno anxiety.ROS as noted in the [facility] Vy Olmedo MD Attn: Accounting,[address] [place], [address], [facility] 08/07/2017 14:40:48 8 text/html Annual Obstetric Anaesthetist Post-MenopausalReported by PatientGenitourinary symptomsFor menopausal symptoms, patient reportsno menopausal symptomsandnormal vaginal lubrication. For vaginal bleeding, patient reportshistory of menopause having occurredandno history of post menopausal bleeding. For urinary symptoms, patient reportsno hematuria,no incontinence,no nocturia, andno urinary frequency. For vulva, patient reportsno genital lesionandno vulvar atrophy. For vagina, patient reportsnormal vaginal dischargeandno vaginal atrophy.Breast symptomsFor breast, patient reportsno breast lump,no nipple discharge, andno breast pain.Psychological symptomsFor sexual complaints, patient reportsno sexual complaints. For psychological symptoms, patient reportsno depressionandno anxiety.ROS as noted in the [facility] Vy Olmedo MD Attn: Accounting,[address], [place], [address], [place] 11/18/2018 16:36:59 OBGyn Episode Ob Episode Information Episode Created Date Number of Fetuses Patient Bloodtype Patient rh Status Prepregnancy Weight lbs Domestic Partner Domestic Partner Phone Father Name Mud Jack Nozzleman Status 03/09/20 15 1 CLOSED Fetus Data [...] Complications Tubal Sterilization Discharge Date Comments 3 Regional-Ep idural 40 Discharge Information Feeding Method Contraceptive Method Maternal HG B and HCT Levels
--- NOTE | 2025-11-09 10:03 | PM.IMHP2 ---
H&P: HPI History of Present Illness Date/Time: 11/09/25 10:03 Chief Complaint: Left arm mass Narrative: 60 yo woman presents for excision of left arm mass. She reports no changes since last seen in office. Review of Systems Review of Systems: All systems reviewed & are unremarkable except as noted in HPI and below Constitutional: Constitutional: Denies chills, Denies fever(s), Denies headache(s) and Denies weight loss Eyes: Eyes: Denies change in vision ENT: Denies dizziness, Denies headache(s), Denies neck mass and Denies throat swelling Cardiovascular: Cardiovascular: Denies chest pain, Denies lightheadedness and Denies dyspnea Respiratory: Respiratory: Denies cough, Denies dyspnea and Denies wheezing Gastrointestinal: Gastrointestinal: Denies abdominal pain, Denies change in bowel habits, Denies nausea and Denies vomiting Genitourinary: Genitourinary: Denies hematuria and Denies dysuria Musculoskeletal: Musculoskeletal: Reports as per HPI Integumentary/Breasts: Skin/Breast: Reports as per HPI Neurologic: Denies dizziness and Denies headache(s) Allergic/Immunologic: Allergic/Immunologic: Denies throat swelling and Denies wheezing PMF Past Medical History Medical History Acute pharyngitis Cellulitis of face Dextroscoliosis of lumbar spine Lipoma of arm left Migraine headache Multiple symmetrical lipomatosis Otalgia, right ear Surgical History Surgical History Bone tumor Excision History of neck surgery History of tonsillectomy Hx of fusion of cervical spine Neuroma excision on left foot x3 2017, 2018, & 2019 S/P excision of lipoma x2 S/P hemorrhoidectomy s/p I&D thrombosed internal hemorrhoids on Family History Family History Grandparent Parkinson disease Father Lung cancer Social History Social History Smoking status: Never smoker Second hand tobacco smoke exposure: Yes Alcohol intake: current Drinks per week: 2 Alcohol use details: occasional Substance use: never Substance use type: does not use Lack of Transportation: No Lack of Food: Never True Current Housing: I Have Housing Concerned About Future Housing: No Difficulty Paying Gas/Electric Bills: No Difficulty Paying for Meds: No Currently Unemployed: No Education: High School Diploma/GED Difficulty w/ Childcare or Family Care: No Living arrangements: with family Occupation/Education: occupation 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 Spiritual care concerns: No Meds Home Medications and Allergies Home Medications ?Medication ?Instructions ?Recorded ?Confirmed ?Type multivit,mineral-folic acid 800 1 tablet PO DAILY 01/19/21 11/09/25 History mcg-vit K 100 mcg-herbal no.289 tablet (Alive Once Daily Women 50 Plus) turmeric 400 mg capsule 400 mg PO DAILY 07/30/24 11/09/25 History Allergies Allergy/AdvReac Type Severity Reaction Status Date / Time amoxicillin Allergy Hives Verified 10/29/25 09:07 adhesive tape AdvReac Rash & Verified 10/29/25 09:07 itching Vital Signs Vital Signs - 24 hr 11/09/25 09:54 Temperature 99.0 F Pulse Rate 75 Respiratory Rate 16 Blood Pressure 146/76 H Pulse Oximetry 100 Oxygen Delivery Room Air Exam Const: General: no acute distress and alert Orientation/consciousness: patient oriented x3 HENMT: Head: normocephalic and atraumatic Ears: hearing grossly normal bilaterally Face/Nose/Sinus: Normal nares present Mouth: Yes Normal oral and palatal mucosa present Eyes: Periorbital: periorbital findings normal Sclera: sclerae normal EOM: EOMs intact bilaterally Neck: Neck: normal visual inspection, no lymphadenopathy and trachea midline Chest: Chest palpation & inspection: normal inspection of the chest Resp: Effort & Inspection: normal respiratory effort Auscultation: clear to auscultation bilaterally Cardio: Jugular venous distension: no JVD Rate: regular rate Rhythm: regular rhythm Heart sounds: S1 normal heart sound present and S2 normal heart sound present Peripheral pulses: Peripheral pulses 2+ throughout GI: Inspection: normal to inspection GI Palp: Yes Soft to palpation, No Tenderness to palpation present (GI), No Guarding due to palpation present (GI) and No Rebound tenderness present Percussion: Yes normal to percussion Auscultation: normal bowel sounds : General: Yes no CVA tenderness Back/Spine/Pelvis: Back: no CVA tenderness Neuro: General: patient oriented x3, no focal motor deficits and CN's II-XI intact bilaterally Cognition (Neuro): normal cognition Speech: normal speech Motor exam (neuro): 5/5 motor strength present throughout Extrem: General: capillary refill normal and no clubbing, cyanosis or edema Other: 4cm left arm mass consistent with lipoma. Assessment and Plan Assessment and plan (1) Mass of left upper extremity: Code(s): R22.32 - Localized swelling, mass and lump, left upper limb Status: Acute Assessment and Plan: I have recommended excision of 4 cm left arm mass. I have discussed the procedure, risks, benefits, and alternatives with the patient. All questions answered. No changes since last seen in office.
--- NOTE | 2025-11-09 10:05 | WPDHPUPDATE1 ---
History and Physical Update Update Date/Time: 11/09/25 10:05 History and Physical has been reviewed, including an updated exam of the patient. There are NO changes in the patient's condition. Risks, benefits, and alternatives have been discussed and questions answered. Patient agrees to proceed with procedure.
[2025-11-09] MEDS: LIDO 1%/EPINEPHRINE 1:100,000 20 ML VIAL 40 ML (10:42)
--- NOTE | 2025-11-09 10:58 | W.PM.PROC2 ---
Procedure Note - Detailed Date of Procedure 11/09/25 Pre-op Diagnosis 4cm Left Arm Mass Post-op Diagnosis Same Procedure Performed 1. Excision of 4 cm left arm mass 2. Layered closure Surgeon Martín Andujar, DO Anesthesia Local ( 1% lidocaine with epinephrine) Indications this is a 60-year-old woman who presented with a left arm mass that was increasing in size and causing some slight discomfort. She had a history of an excision of a mass in the same region about 20 or 30 years ago. She was found to have a soft mobile soft tissue mass measuring about 4 cm on the lateral left upper arm. Discussions were made with the patient about treatment options and decision was made to proceed with excision of 4 cm left arm mass under local anesthesia. Findings Excision of 4 cm left arm mass was performed. There was a lipomatous mass in the subcutaneous space of the left arm. No other abnormalities were identified. This was excised completely and sent to the lab for pathology. A layered closure was then performed using 3 0 Vicryl simple interrupted sutures in Tien's fascia followed by 4 0 Monocryl running subcuticular suture. Description of Procedure Procedure as well as risks, benefits, and alternatives were discussed with the patient. Written consent was obtained and placed in chart prior to procedure. Patient was brought back to surgical suite. She was placed supine on operating table. Time-out was done to confirm patient and procedure. Her left arm area was prepped and draped in sterile fashion using chlorhexidine prep. 1% lidocaine with epinephrine was infiltrated directly over the mass. A 4 cm longitudinal incision was made over the left upper arm mass using a 15 blade scalpel. Electrocautery was then used for hemostasis and for careful dissection around the subcutaneous mass. The mass was completely excised intact and was sent to the lab for pathology. The wound bed was then inspected and no other masses were identified. Hemostasis was achieved with electrocautery. Tien's fascia was then reapproximated using 3 0 Vicryl simple interrupted sutures. The skin was then reapproximated using 4 Monocryl running subcuticular suture. Exofin glue was then applied on top. The patient was then transferred to recovery. Estimated Blood Loss 3 Pathology Yes ( 4 cm left arm mass) Complications No immediate complications Condition Stable Disposition Same day [facility] Billing Surgery - Charge Forward: Surgery Billing
== END 2025-11-09 11:14 | disposition home or self-care (01) ==
PROVIDERS: PCP Internal Medicine; Visit Provider Surgery
PROC: (CPT 24071; principal; 2025-11-09 10:00)
DX: D17.22 Benign lipomatous neoplasm of skin and subcutaneous tissue of left arm (principal)
CPT/HCPCS: 24071